=== PATIENT | female | born 1950 | race Hispanic/Latino ===

== ENCOUNTER 2018-03-10 10:35 | Outpatient (CLI) | payer MEDICARE ==
--- NOTE | 2018-03-10 15:22 | Cat Scan Report ---
CT CHEST WITH CONTRAST: HISTORY: Malignant neoplasm of sigmoid colon. COMPARISON: none. TECHNIQUE: Helical CT in 1.25mm intervals following IV contrast. Sagittal and coronal reformatted images. FINDINGS: Thyroid gland: Normal. Tracheobronchial tree: Normal. Esophagus: Normal. Heart: Normal. Pericardium: Normal. Mediastinum: Normal. Lung Brenner: Normal. Pleural Spaces: Normal. Musculoskeletal: No suspicious bony lesion is identified. There appears to be a healing nondisplaced left lateral sixth rib fracture. Skin thickening throughout the left breast is also noted which is of uncertain etiology. Consider correlation with mammogram. IMPRESSION: Unremarkable CT chest with contrast. No evidence for metastatic disease or acute process. Healing left lateral sixth rib fracture.
--- NOTE | 2018-03-11 15:18 | Mammography Report ---
BONE DEXA:03/10/18 10:35:00 CLINICAL: Postmenopausal and history of left breast cancer. On Arimidex. No comparison. TECHNIQUE: Two site bone DEXA performed on an Hologic scanner. FINDINGS: The average BMD of the lumbar spine L1-L4 is 0890g/cm squared with a T-score of -1.4 and a Z-score of +0.4. The average BMD of the left hip is 0.850g/cm squared with a T-score of -0.8 and a Z-score of plus or 0.5. IMPRESSION: 1. WHO classification: Osteopenia with increased fracture risk based on lumbar spine measurements. 2. WHO classification: Normal with increased fracture risk based on left hip measurements. 3. The FRAX 10 year fracture probability for a major osteoporotic fracture is 7.7%. 4. The FRAX 10 year fracture probability for hip fracture is 0.6%. Note: FRAX version 3.01. Fracture probability calculated for an untreated patient. Fracture probability may be lower if the patient has received treatment. RECOMMENDATION: Clinical correlation and routine screening. DEFINITIONS: BMD = Bone Mineral Density T-score = BMD related to mean peak bone mass of young adult (mean expressed in Standard Deviation) Z-score = Age matched BMD expressed in SD World Health Organization (WHO) Diagnostic Criteria Normal T-score > -1 SD Osteopenia T-score between -1 and -2.4 SD Osteoporosis T-score -2.5 SD or below NOTE: BMD is not the only risk factor for fracture; also consider factors such as the patient's age, risk of falling, previous osteoporotic fracture, family history of osteoporotic fractures, current smoker, and low body weight. All treatment decisions require clinical judgment and consideration of individual patient factors, including patient preferences, comorbidities, previous drug use and risk factors not captured in the FRAX model (e.g. frailty, falls, vitamin D deficiency, increased bone turnover, interval significant decline in BMD). Fracture probability is calculated for an untreated patient. Fracture probability may be lower if the patient has received treatment. Z-scores are not calculated if >80 years of age.
== END 2018-03-10 10:36 | disposition home or self-care (01) ==
LOC: EDSEX 10:35 → MAMMO 10:35
PROVIDERS: ATTEND Internal Medicine Hematology & Oncology
DX: C50.412 Malignant neoplasm of upper-outer quadrant of left female breast (principal); D64.9 Anemia, unspecified; C18.7 Malignant neoplasm of sigmoid colon; F17.210 Nicotine dependence, cigarettes, uncomplicated; Z78.0 Asymptomatic menopausal state
CPT/HCPCS: 71260; 77080; Q9967